=== PATIENT | female | born 1990 | race Two or more races ===

== ENCOUNTER 2018-07-05 23:10 | Emergency (ER) | payer MEDICAID ==
[~2018-07-05] VITALS: Ht 160 cm; Wt 50.9 kg
[2018-07-05 23:32] LABS: CLARITY,URINE CLEAR (Clear); COLOR,URINE STRAW (Yellow); GLUCOSE, URINE NEGATIVE (Neg); KETONES,URINE NEGATIVE (Neg); LEUKOCYTE ESTERASE ,URINE NEGATIVE (Neg); NITRITES, URINE NEGATIVE (Neg); OCCULT BLOOD,URINE NEGATIVE (Neg); PROTEIN,URINE NEGATIVE (Neg); UA COLLECTION TYPE CLN CATCH MIDSTREAM; UROBILINOGEN,URINE 0.2 E.U/dL (0.2-1.0)
[2018-07-05 23:34] LABS: URINE HCG NEGATIVE (NEG)
[2018-07-05 23:36] LABS: BASOPHILS % (AUTO) 0.4 % (0-1); EOSINOPHILS # (AUTO) 0.1 X10'3 (0-0.9); EOSINOPHILS % (AUTO) 1.3 % (0-6); HEMOGLOBIN 14.2 g/dl (12.0-16.0); LYMPHOCYTES # (AUTO) 2.1 X10'3 (1.1-4.8); LYMPHOCYTES % (AUTO) 35.6 % (21-51); MEAN CORPUSCULAR HEMOGLOBIN 28.5 PG (27.0-31.0); MEAN CORPUSCULAR HGB CONC 33.9 % (33.0-36.5); MEAN CORPUSCULAR VOLUME 84.2 FL (78-98); MEAN PLATELET VOLUME 10.2 FL (7.4-10.4); MONOCYTES # (AUTO) 0.5 X10'3 (0-0.9); MONOCYTES % (AUTO) 8.2 % (2-12); NEUTROPHILS # (AUTO) 3.2 X10'3 (1.8-7.7); NEUTROPHILS % (AUTO) 54.5 % (42-75); PLATELET COUNT 249 X10'3 (140-440); RED BLOOD COUNT 4.99 X10'6 (4.20-5.60); RED CELL DISTRIBUTION WIDTH 11.8 % (11.5-14.5); WHITE BLOOD COUNT 5.9 X10'3 (4.5-11.0)
[2018-07-05 23:43] LABS: ALANINE AMINOTRANSFERASE 16 U/L (12-78); ALBUMIN 3.9 G/DL (3.4-5.0); ALKALINE PHOSPHATASE 62 IU/L (46-116); ANION GAP 5 (8-16); ASPARTATE AMINO TRANSFERASE 16 U/L (10-37); BILIRUBIN,TOTAL 0.2 MG/DL (0.1-1.0); BLOOD UREA NITROGEN 12 MG/DL (7-18); CALCIUM 8.8 MG/DL (8.5-10.1); CHLORIDE 106 MMOL/L (99-107); CREATININE 0.75 MG/DL (0.40-0.90); POTASSIUM 3.6 MMOL/L (3.5-5.1); SODIUM 142 MMOL/L (135-145); TOTAL PROTEIN 7.8 G/DL (6.4-8.2); eGFR > 90 ML/MIN
[2018-07-06 00:12] LABS: GLUCOSE 94 MG/DL (70-104)
[2018-07-06 00:55] VITALS: BP 105/69
== END 2018-07-06 01:15 | disposition home or self-care (01) ==
LOC: ER 23:11
DX: R22.9 Localized swelling, mass and lump, unspecified (principal); R10.30 Lower abdominal pain, unspecified; G89.29 Other chronic pain
CPT/HCPCS: 36415; 80053; 81003; 81025; 85025; 99284

== ENCOUNTER 2019-06-21 15:14 | Emergency (ER) | payer MEDICAID ==
[~2019-06-21] VITALS: Ht 160 cm; Wt 55.4 kg
[2019-06-21 15:56] LABS: BASOPHILS % (AUTO) 0.4 % (0-1); EOSINOPHILS # (AUTO) 0.1 X10'3 (0-0.9); EOSINOPHILS % (AUTO) 1.9 % (0-6); HEMATOCRIT 41.3 % (35.0-45.0); HEMOGLOBIN 13.8 g/dl (12.0-16.0); LYMPHOCYTES # (AUTO) 1.4 X10'3 (1.1-4.8); MEAN CORPUSCULAR HEMOGLOBIN 28.7 PG (27.0-31.0); MEAN CORPUSCULAR HGB CONC 33.4 g/dL (33.0-36.5); MEAN CORPUSCULAR VOLUME 85.8 FL (78-98); MEAN PLATELET VOLUME 9.8 FL (7.4-10.4); MONOCYTES # (AUTO) 0.4 X10'3 (0-0.9); MONOCYTES % (AUTO) 8.5 % (2-12); NEUTROPHILS # (AUTO) 3.1 X10'3 (1.8-7.7); NEUTROPHILS % (AUTO) 62.2 % (42-75); PLATELET COUNT 244 X10'3 (140-440); RED BLOOD COUNT 4.81 X10'6 (4.20-5.60); RED CELL DISTRIBUTION WIDTH 12.4 % (11.5-14.5)
[2019-06-21 16:05] LABS: PARTIAL THROMBOPLASTIN TIME 26 SECONDS (22-32)
[2019-06-21 16:11] LABS: ALANINE AMINOTRANSFERASE 40 U/L (12-78); ALBUMIN 3.8 G/DL (3.4-5.0); ALKALINE PHOSPHATASE 68 IU/L (46-116); ANION GAP 8 (8-16); ASPARTATE AMINO TRANSFERASE 28 U/L (10-37); BILIRUBIN,TOTAL 0.2 MG/DL (0.1-1.0); BLOOD UREA NITROGEN 11 MG/DL (7-18); BUN/CREATININE RATIO 16.2 (6.6-38.0); CALCIUM 8.8 MG/DL (8.5-10.1); CHLORIDE 106 MMOL/L (99-107); CREATININE 0.68 MG/DL (0.40-0.90); GLUCOSE 91 MG/DL (70-104); POTASSIUM 3.9 MMOL/L (3.5-5.1); SODIUM 141 MMOL/L (135-145); TOTAL CARBON DIOXIDE 26.8 MMOL/L (24-32); TOTAL PROTEIN 7.8 G/DL (6.4-8.2); eGFR > 90 ML/MIN
[2019-06-21 18:11] VITALS: BP 117/64
== END 2019-06-21 19:00 | disposition home or self-care (01) ==
LOC: ER 15:15
DX: R00.2 Palpitations (principal); G89.29 Other chronic pain
CPT/HCPCS: 36415; 71045; 80053; 84443; 84484; 85025; 85610; 85730; 93005; 99284

== ENCOUNTER 2019-10-23 21:27 | Emergency (ER) | payer MEDICAID ==
[~2019-10-23] VITALS: Ht 160 cm; Wt 54.5 kg
[2019-10-23 21:27] VITALS: BP 112/53
[2019-10-23 21:45] LABS: URINE HCG NEGATIVE (NEG)
[2019-10-23 22:35] LABS: CLARITY,URINE CLEAR (Clear); COLOR,URINE STRAW (Yellow); GLUCOSE, URINE NEGATIVE (Neg); KETONES,URINE NEGATIVE (Neg); LEUKOCYTE ESTERASE ,URINE NEGATIVE (Neg); NITRITES, URINE NEGATIVE (Neg); OCCULT BLOOD,URINE NEGATIVE (Neg); PROTEIN,URINE NEGATIVE (Neg); UROBILINOGEN,URINE 0.2 E.U/dL (0.2-1.0)
[2019-10-23 22:52] LABS: UA COLLECTION TYPE CLN CATCH MIDSTREAM
== END 2019-10-23 23:04 | disposition home or self-care (01) ==
LOC: ER 21:27
DX: R30.0 Dysuria (principal); M54.5 Low back pain; G89.29 Other chronic pain; Z98.890 Other specified postprocedural states
CPT/HCPCS: 81003; 81025; 99283

== ENCOUNTER 2020-01-14 07:37 | Inpatient (IN) | payer MEDICAID ==
[~2020-01-14] VITALS: Ht 160 cm; Wt 54.0 kg
[2020-01-14] VITALS (13 sets, daily range): BP systolic 74–114; BP diastolic 43–76
[2020-01-14 07:55] LABS: URINE HCG NEGATIVE (NEG)
[2020-01-14 07:56] LABS: CLARITY,URINE SLIGHTLY CLOUDY (Clear); COLOR,URINE YELLOW (Yellow); GLUCOSE, URINE NEGATIVE (Neg); KETONES,URINE NEGATIVE (Neg); LEUKOCYTE ESTERASE ,URINE NEGATIVE (Neg); NITRITES, URINE NEGATIVE (Neg); OCCULT BLOOD,URINE LARGE (Neg); PH,URINE 6.5 (4.8-8.0); PROTEIN,URINE NEGATIVE (Neg); UA COLLECTION TYPE CLN CATCH MIDSTREAM; UROBILINOGEN,URINE 0.2 E.U/dL (0.2-1.0)
[2020-01-14 08:08] LABS: MUCUS STRANDS MODERATE /LPF (Neg); SQUAMOUS EPITHELIAL CELL,UR MODERATE /LPF (FEW)
[2020-01-14 08:09] LABS: RBC,URINE 50-100 /HPF (0-2)
[2020-01-14] MEDS ORDERED: normal saline 1000ML IV soln IVB ONE ×2 (08:10→10:50)
[2020-01-14] MEDS ORDERED: ondansetron/PF 4mg/2ml inj IV ONE (08:10)
[2020-01-14] MEDS ORDERED: ketorolac trometh. 30mg/ml inj. IV ONE (08:10)
[2020-01-14 08:11] LABS: BACTERIA,URINE 1+ /HPF (Neg); CAL OXALATE CRYSTALS 1+ /HPF (NEGATIVE)
[2020-01-14 08:41] LABS: BASOPHILS % (AUTO) 0.3 % (0-1); EOSINOPHILS # (AUTO) 0.1 X10'3 (0-0.9); EOSINOPHILS % (AUTO) 1.9 % (0-6); HEMATOCRIT 37.3 % (35.0-45.0); HEMOGLOBIN 12.6 g/dl (12.0-16.0); LYMPHOCYTES # (AUTO) 1.4 X10'3 (1.1-4.8); LYMPHOCYTES % (AUTO) 26.1 % (21-51); MEAN CORPUSCULAR HEMOGLOBIN 28.6 PG (27.0-31.0); MEAN CORPUSCULAR HGB CONC 33.7 g/dL (33.0-36.5); MEAN CORPUSCULAR VOLUME 84.9 FL (78-98); MEAN PLATELET VOLUME 9.8 FL (7.4-10.4); MONOCYTES # (AUTO) 0.6 X10'3 (0-0.9); MONOCYTES % (AUTO) 10.7 % (2-12); NEUTROPHILS # (AUTO) 3.2 X10'3 (1.8-7.7); PLATELET COUNT 210 X10'3 (140-440); RED CELL DISTRIBUTION WIDTH 12.2 % (11.5-14.5); WHITE BLOOD COUNT 5.3 X10'3 (4.5-11.0)
[2020-01-14 08:56] LABS: ALANINE AMINOTRANSFERASE 29 U/L (12-78); ALBUMIN 3.6 G/DL (3.4-5.0); ALKALINE PHOSPHATASE 62 IU/L (46-116); ANION GAP 6 (8-16); ASPARTATE AMINO TRANSFERASE 25 U/L (10-37); BILIRUBIN,TOTAL 0.2 MG/DL (0.1-1.0); BLOOD UREA NITROGEN 12 MG/DL (7-18); BUN/CREATININE RATIO 15.4 (6.6-38.0); CALCIUM 8.4 MG/DL (8.5-10.1); CHLORIDE 105 MMOL/L (99-107); CREATININE 0.78 MG/DL (0.40-0.90); GLUCOSE 99 MG/DL (70-104); LIPASE 198 U/L (73-393); POTASSIUM 3.6 MMOL/L (3.5-5.1); SODIUM 139 MMOL/L (135-145); TOTAL CARBON DIOXIDE 28.2 MMOL/L (24-32); TOTAL PROTEIN 7.2 G/DL (6.4-8.2); eGFR 86 ML/MIN
[2020-01-14] MEDS: morphine 4 MG/ML inj SYRINge IV PRN ×2 (09:30→10:58)
[2020-01-14] MEDS ORDERED: FLO0.4C PO (10:19)
[2020-01-14] MEDS ORDERED: IBUP-1984 PO (10:19)
[2020-01-14] MEDS ORDERED: HYDR-3965 PO (10:19)
[2020-01-14] MEDS ORDERED: morphine 4 MG/ML inj SYRINge IV ONE (11:15)
[2020-01-14] MEDS ORDERED: HYDROmorphone 1 mg/ml syringe IV ONE (11:15)
[2020-01-14] MEDS ORDERED: morphine 2 MG/ML inj. syringe IV PRN ×3 (11:30→14:30)
[2020-01-14] MEDS ORDERED: HYDROcodone/acetaminophen 5mg/325mg tablet PO PRN (11:30)
[2020-01-14] MEDS ORDERED: potassium Cl 20 mEq SR tablet PO PRN ×2 (11:30)
[2020-01-14] MEDS ORDERED: ondansetron/PF 4mg/2ml inj IV PRN ×2 (11:30→14:30)
[2020-01-14] MEDS ORDERED: magnesium hydroxide 30ml (MOM) UD suspension PO PRN (11:30)
[2020-01-14] MEDS ORDERED: magnesium 4gm in 100ml NS 100 ML IV PRN (11:30)
[2020-01-14] MEDS ORDERED: magnesium 2GM in 50ml NS 50 ML IV PRN (11:30)
[2020-01-14] MEDS ORDERED: magnesium Cl slow-release 64mg tablet PO PRN (11:30)
[2020-01-14] MEDS ORDERED: potassium CL 10mEq/100ml bag 100 ML IV PRN ×2 (11:30)
[2020-01-14] MEDS ORDERED: acetaminophen 325mg tablet PO PRN ×2 (11:30)
[2020-01-14] MEDS ORDERED: HYDROcodone/acetaminophen 10/325mg tab PO PRN (11:30)
[2020-01-14] MEDS ORDERED: mag hydrox/Alum hydrox/simeth 30ml oral suspension PO PRN (11:30)
[2020-01-14] MEDS ORDERED: NO HOME MEDS (11:41)
--- NOTE | 2020-01-14 12:30 | NUR ---
Patient in room [facility]. I have received report from GINA Henson and had the opportunity to ask questions and assume patient care.
[2020-01-14] MEDS: normal saline 1000ml 1,000 ML IV SCH ×2 (12:55→20:50)
--- NOTE | 2020-01-14 13:51 | NUR ---
Urologist Dr. Encinas provided treatment options.
[2020-01-14] MEDS ORDERED: CefTRIAXone 1000mg IM Kit (w/lidocaine diluent) IM STA (14:00)
[2020-01-14] MEDS ORDERED: ringers solution, lacted 1,000 ML IV SCH (14:29)
[2020-01-14] MEDS ORDERED: labetalol 20mg/4ml (5mg/ml) syringe IV PRN (14:30)
[2020-01-14] MEDS ORDERED: morphine 4 MG/ML inj SYRINge IV PRN (14:30)
[2020-01-14] MEDS ORDERED: hydrALAZINE 20mg/ml inj. IV PRN (14:30)
[2020-01-14] MEDS ORDERED: fentaNYL/PF 50MCG/1 ML 2ML syringe IV PRN ×2 (14:30)
[2020-01-14] MEDS ORDERED: iohexol 300 MG/1 ML 50ml polymer ONE (14:45)
--- NOTE | 2020-01-14 14:50 | NUR ---
Pt was picked up by OR tech at 1450. No distress noted.
[2020-01-14] MEDS ORDERED: midazolam 2 mg/2 ml injection ONE (14:51)
[2020-01-14] MEDS ORDERED: ondansetron/PF 4mg/2ml inj ONE (14:51)
[2020-01-14] MEDS ORDERED: fentaNYL/PF 50MCG/1 ML 2ML syringe ONE (14:51)
[2020-01-14] MEDS ORDERED: propofol inj 20 ML IV ONE (14:51)
[2020-01-14] MEDS ORDERED: LIDOcaine 2% (20mg/ml) 5ml vial ONE (14:51)
[2020-01-14] MEDS ORDERED: sevoflurane 250ml liquid IH ONE (14:55)
[2020-01-14] MEDS ORDERED: dexamethasone sod phosphate 4mg/ml inj. ONE (15:08)
--- NOTE | 2020-01-14 15:32 | NUR ---
Received from OR via BED, accompanied by Anesthesiologist DR CARBALLO and report given by Anesthesiologist. PT VERY DROWSY, NO S/S OF DISTRESS/DISCOMFORT, BP MARGINAL, DR CARBALLO AWARE. Addendum: 01/14/20 at 1557 by Trang Arreola RN Amended: Links added.
--- NOTE | 2020-01-14 16:07 | NUR ---
Received report from GINA Costello from OR, BP 89/52, 800 LR was given, no pain at present. L ureteral stent placed through cystoscopy.
--- NOTE | 2020-01-14 16:32 | NUR ---
Report called to receiving nurse. Transferred via BED, NO Belongings, PT COMFORTABLE, RECEIVING RN AT BEDSIDE TO RECEIVE PT, BLL, CALL LIGHT GIVEN, SIDE RAILS UP X 2. Special Issues communicated to receiving nurse. YES. Addendum: 01/14/20 at 1641 by Trang Arreola RN Amended: Links added.
--- NOTE | 2020-01-14 18:00 | NUR ---
Problems reprioritized. Patient report given, questions answered & plan of care reviewed with GINA Villavicencio.
--- NOTE | 2020-01-14 18:15 | NUR ---
Patient in room [facility]. I have received report from lizzie FUENTES and had the opportunity to ask questions and assume patient care.
--- NOTE | 2020-01-14 19:36 | NUR ---
Patient has 1x juice and 2 x broth for dinner = 480mls Addendum: 01/15/20 at 0237 by Maye Cowan RN Amended: Links added.
[2020-01-14] MEDS: K and/or MAG REPLACEMENT MC SCH (20:00)
[2020-01-14] MEDS ORDERED: tamsulosin 0.4mg capsule PO SCH (21:00)
[2020-01-14] MEDS ORDERED: temazepam 15mg capsule PO PRN (21:00)
[2020-01-14] MEDS: heparin, porcine 5000 units/ml vial SQ SCH (21:07)
[2020-01-15 04:00] VITALS: BP 90/52
[2020-01-15 05:23] LABS: BASOPHILS % (AUTO) 0.1 % (0-1); EOSINOPHILS % (AUTO) 0 % (0-6); HEMATOCRIT 33.4 % (35.0-45.0); HEMOGLOBIN 11.2 g/dl (12.0-16.0); LYMPHOCYTES # (AUTO) 0.6 X10'3 (1.1-4.8); LYMPHOCYTES % (AUTO) 8.3 % (21-51); MEAN CORPUSCULAR HEMOGLOBIN 28.8 PG (27.0-31.0); MEAN CORPUSCULAR HGB CONC 33.7 g/dL (33.0-36.5); MEAN CORPUSCULAR VOLUME 85.4 FL (78-98); MEAN PLATELET VOLUME 10.1 FL (7.4-10.4); MONOCYTES # (AUTO) 0.5 X10'3 (0-0.9); NEUTROPHILS % (AUTO) 84.6 % (42-75); PLATELET COUNT 198 X10'3 (140-440); RED BLOOD COUNT 3.91 X10'6 (4.20-5.60); RED CELL DISTRIBUTION WIDTH 12.1 % (11.5-14.5); WHITE BLOOD COUNT 7.1 X10'3 (4.5-11.0)
[2020-01-15 05:43] LABS: ALBUMIN 2.8 G/DL (3.4-5.0); ANION GAP 10 (8-16); BLOOD UREA NITROGEN 8 MG/DL (7-18); BUN/CREATININE RATIO 10.1 (6.6-38.0); CALCIUM 8.1 MG/DL (8.5-10.1); CHLORIDE 107 MMOL/L (99-107); CREATININE 0.79 MG/DL (0.40-0.90); GLUCOSE 125 MG/DL (70-104); POTASSIUM 3.5 MMOL/L (3.5-5.1); SODIUM 140 MMOL/L (135-145); TOTAL CARBON DIOXIDE 23.3 MMOL/L (24-32); eGFR 85 ML/MIN
--- NOTE | 2020-01-15 06:41 | NUR ---
Problems reprioritized. Patient report given, questions answered & plan of care reviewed with Dalia FUENTES. Patient currently sleeping.
[2020-01-15 07:00] VITALS: BP 90/50
[2020-01-15] MEDS: normal saline 1000ml 1,000 ML IV SCH (07:44)
[2020-01-15] MEDS: K and/or MAG REPLACEMENT MC SCH (07:46)
[2020-01-15] MEDS: heparin, porcine 5000 units/ml vial SQ SCH (07:47)
[2020-01-15] MEDS ORDERED: CefTRIAXone 2gm/D5W 50ml 50 ML IV SCH (08:00)
[2020-01-15] MEDS ORDERED: lactobacillus rhamnosus 10,000 MMU CELLS/CAPSULE PO SCH (20:00)
== END 2020-01-15 11:53 | disposition home or self-care (01) | DRG 463 ==
LOC: ER 07:37 → ED HOLD 11:30 → SUR 3N 12:50
PROVIDERS: ADMIT Internal Medicine; ATTEND Family Medicine
PROC: 0T778DZ Dilation of Left Ureter with Intraluminal Device, Via Natural or Artificial Opening Endoscopic (ICD-10-PCS; principal; 2020-01-14 14:55)
DX: N13.6 Pyonephrosis (principal); G89.29 Other chronic pain; N80.9 Endometriosis, unspecified; Z98.891 History of uterine scar from previous surgery
CPT/HCPCS: 36415; 74018; 74176; 76000; 80048; 80053; 81001; 81025; 82948; 83605; 83690; 83735; 85025; 87040; 87081; 87088; 96361; 96374; 96375; 96376; 99285; A4618; C1758; C1769; C2617; G0378; J0696; J1100; J1644; J1885; J2001; J2250; J2270; J2405; J2704; J3010; J7030; Q9967

== ENCOUNTER 2020-08-13 00:18 | Emergency (ER) | payer MEDICAID ==
[~2020-08-13] VITALS: Ht 160 cm; Wt 55.0 kg
[~2020-08-13 00:18] MED LIST: NO HOME MEDS
[2020-08-13 01:41] LABS: URINE HCG NEGATIVE (NEG)
[2020-08-13 01:42] LABS: CLARITY,URINE CLEAR (Clear); COLOR,URINE STRAW (Yellow); GLUCOSE, URINE NEGATIVE (Neg); KETONES,URINE NEGATIVE (Neg); LEUKOCYTE ESTERASE ,URINE NEGATIVE (Neg); NITRITES, URINE NEGATIVE (Neg); OCCULT BLOOD,URINE TRACE-INTACT (Neg); PH,URINE 7.5 (4.8-8.0); PROTEIN,URINE NEGATIVE (Neg); UROBILINOGEN,URINE 0.2 E.U/dL (0.2-1.0)
[2020-08-13 01:43] LABS: BASOPHILS % (AUTO) 0.4 % (0-1); EOSINOPHILS # (AUTO) 0.1 X10'3 (0-0.9); EOSINOPHILS % (AUTO) 2.1 % (0-6); HEMATOCRIT 39.4 % (35.0-45.0); HEMOGLOBIN 13.1 g/dl (12.0-16.0); LYMPHOCYTES # (AUTO) 1.7 X10'3 (1.1-4.8); LYMPHOCYTES % (AUTO) 40.7 % (21-51); MEAN CORPUSCULAR HEMOGLOBIN 27.9 PG (27.0-31.0); MEAN CORPUSCULAR HGB CONC 33.1 g/dL (33.0-36.5); MEAN PLATELET VOLUME 9.9 FL (7.4-10.4); MONOCYTES # (AUTO) 0.4 X10'3 (0-0.9); MONOCYTES % (AUTO) 9.1 % (2-12); NEUTROPHILS % (AUTO) 47.7 % (42-75); PLATELET COUNT 235 X10'3 (140-440); RED BLOOD COUNT 4.69 X10'6 (4.20-5.60); RED CELL DISTRIBUTION WIDTH 12.1 % (11.5-14.5); WHITE BLOOD COUNT 4.3 X10'3 (4.5-11.0)
[2020-08-13 01:43] LABS: UA COLLECTION TYPE CLN CATCH MIDSTREAM
[2020-08-13 01:49] LABS: ALANINE AMINOTRANSFERASE 22 U/L (12-78); ALBUMIN 3.7 G/DL (3.4-5.0); ALKALINE PHOSPHATASE 73 IU/L (46-116); ANION GAP 7 (8-16); ASPARTATE AMINO TRANSFERASE 18 U/L (10-37); BILIRUBIN,TOTAL 0.2 MG/DL (0.1-1.0); BLOOD UREA NITROGEN 11 MG/DL (7-18); BUN/CREATININE RATIO 13.8 (6.6-38.0); CALCIUM 8.5 MG/DL (8.5-10.1); CHLORIDE 106 MMOL/L (99-107); GLUCOSE 118 MG/DL (70-104); LIPASE 176 U/L (73-393); POTASSIUM 3.7 MMOL/L (3.5-5.1); SODIUM 141 MMOL/L (135-145); TOTAL CARBON DIOXIDE 28.5 MMOL/L (24-32); TOTAL PROTEIN 7.5 G/DL (6.4-8.2); eGFR 84 ML/MIN
[2020-08-13 01:50] LABS: BACTERIA,URINE NONE SEEN /HPF (Neg); RBC,URINE 0-2 /HPF (0-2); SQUAMOUS EPITHELIAL CELL,UR FEW /LPF (FEW); WBC,URINE NONE SEEN /HPF (0-4)
[2020-08-13 01:52] LABS: URINE AMPHETAMINE SCREEN NEGATIVE (Neg); URINE BARBITUATE SCREEN NEGATIVE (Neg); URINE BENZODIAZEPINES SCREEN NEGATIVE (Neg); URINE CANNABINOID SCREEN NEGATIVE (Neg); URINE COCAINE SCREEN NEGATIVE (Neg); URINE METHADONE SCREEN NEGATIVE (Neg); URINE OPIATE SCREEN NEGATIVE (Neg); URINE PHENCYCLIDINE SCREEN NEGATIVE (Neg)
[2020-08-13 02:34] VITALS: BP 125/86
== END 2020-08-13 03:02 | disposition home or self-care (01) ==
LOC: ER 00:19
DX: R10.9 Unspecified abdominal pain (principal); Z87.442 Personal history of urinary calculi; G89.29 Other chronic pain; Z98.890 Other specified postprocedural states
CPT/HCPCS: 36415; 80053; 80305; 81001; 81025; 83690; 85025; 99283

== ENCOUNTER 2021-02-19 20:15 | Emergency (ER) | payer MEDICAID ==
[~2021-02-19] VITALS: Ht 160 cm; Wt 54.5 kg
[2021-02-19 21:19] LABS: URINE HCG NEGATIVE (NEG)
[2021-02-19 21:22] LABS: CLARITY,URINE SLIGHTLY CLOUDY (Clear); COLOR,URINE STRAW (Yellow); GLUCOSE, URINE NEGATIVE (Neg); KETONES,URINE NEGATIVE (Neg); LEUKOCYTE ESTERASE ,URINE LARGE (Neg); NITRITES, URINE NEGATIVE (Neg); OCCULT BLOOD,URINE LARGE (Neg); PROTEIN,URINE 30 mg/dl (Neg); UROBILINOGEN,URINE 0.2 E.U/dL (0.2-1.0)
[2021-02-19 21:39] LABS: UA COLLECTION TYPE CLN CATCH MIDSTREAM
[2021-02-19 21:40] LABS: WBC,URINE 30-50 /HPF (0-4)
[2021-02-19 21:41] LABS: BACTERIA,URINE FEW /HPF (Neg); SQUAMOUS EPITHELIAL CELL,UR FEW /LPF (FEW); WBC CLUMPS,URINE FEW /HPF (NEGATIVE)
[2021-02-19] MEDS ORDERED: CEPH250T PO (22:23)
[2021-02-19] MEDS ORDERED: cephalexin 250mg capsule PO ONE ×2 (22:35→22:40)
== END 2021-02-19 22:46 | disposition home or self-care (01) ==
LOC: ER 20:16
DX: N39.0 Urinary tract infection, site not specified (principal); R30.0 Dysuria; G89.29 Other chronic pain; Z87.442 Personal history of urinary calculi; Z87.440 Personal history of urinary (tract) infections; Z98.890 Other specified postprocedural states
CPT/HCPCS: 81001; 81025; 87088; 99283

== ENCOUNTER 2021-12-12 23:18 | Emergency (ER) | payer MEDICAID ==
[~2021-12-12] VITALS: Ht 152.4 cm; Wt 63.6 kg
[2021-12-12 23:34] VITALS: BP 143/81
[2021-12-13 00:09] LABS: MEAN CORPUSCULAR HGB CONC 33.6 g/dL (33.0-36.5); WHITE BLOOD COUNT 5.7 X10'3 (4.5-11.0)
[2021-12-13 00:11] LABS: URINE HCG NEGATIVE (NEG)
[2021-12-13 00:11] LABS: BASOPHILS % (AUTO) 0.4 % (0-1); EOSINOPHILS # (AUTO) 0.1 X10'3 (0-0.9); EOSINOPHILS % (AUTO) 1.8 % (0-6); HEMATOCRIT 39.9 % (35.0-45.0); HEMOGLOBIN 13.4 g/dl (12.0-16.0); LYMPHOCYTES % (AUTO) 35.4 % (21-51); MEAN CORPUSCULAR HEMOGLOBIN 27.8 PG (27.0-31.0); MEAN CORPUSCULAR VOLUME 82.8 FL (78-98); MEAN PLATELET VOLUME 9.9 FL (7.4-10.4); MONOCYTES # (AUTO) 0.4 X10'3 (0-0.9); MONOCYTES % (AUTO) 7.5 % (2-12); NEUTROPHILS # (AUTO) 3.1 X10'3 (1.8-7.7); NEUTROPHILS % (AUTO) 54.9 % (42-75); PLATELET COUNT 261 X10'3 (140-440); RED BLOOD COUNT 4.82 X10'6 (4.20-5.60); RED CELL DISTRIBUTION WIDTH 12.4 % (11.5-14.5)
[2021-12-13 00:14] LABS: ALANINE AMINOTRANSFERASE 16 U/L (12-78); ALBUMIN 3.9 G/DL (3.4-5.0); ALBUMIN/GLOBULIN RATIO 1.1 (1.1-1.5); ALKALINE PHOSPHATASE 70 IU/L (46-116); ANION GAP 14 (8-16); ASPARTATE AMINO TRANSFERASE 14 U/L (10-37); BILIRUBIN,TOTAL 0.3 MG/DL (0.1-1.0); BLOOD UREA NITROGEN 16 MG/DL (7-18); BUN/CREATININE RATIO 20.5 (6.6-38.0); CALCIUM 8.9 MG/DL (8.5-10.1); CHLORIDE 105 MMOL/L (99-107); CREATININE 0.78 MG/DL (0.40-0.90); ETHANOL < 0.010 GM/DL (0.0-0.010); GLUCOSE 159 MG/DL (70-104); MAGNESIUM 2.1 MG/DL (1.5-2.4); POTASSIUM 3.7 MMOL/L (3.5-5.1); SODIUM 142 MMOL/L (135-145); TOTAL CARBON DIOXIDE 23.2 MMOL/L (24-32); TOTAL PROTEIN 7.6 G/DL (6.4-8.2); eGFR 85 ML/MIN
[2021-12-13 00:15] LABS: URINE BARBITUATE SCREEN NEGATIVE (Neg); URINE BENZODIAZEPINES SCREEN NEGATIVE (Neg); URINE CANNABINOID SCREEN NEGATIVE (Neg); URINE COCAINE SCREEN NEGATIVE (Neg); URINE METHADONE SCREEN NEGATIVE (Neg); URINE OPIATE SCREEN NEGATIVE (Neg); URINE PHENCYCLIDINE SCREEN NEGATIVE (Neg)
[2021-12-13 00:26] LABS: URINE AMPHETAMINE SCREEN NEGATIVE (Neg)
[2021-12-13 00:42] LABS: CLARITY,URINE CLEAR (Clear); COLOR,URINE YELLOW (Yellow); GLUCOSE, URINE NEGATIVE (Neg); KETONES,URINE NEGATIVE (Neg); LEUKOCYTE ESTERASE ,URINE NEGATIVE (Neg); NITRITES, URINE NEGATIVE (Neg); OCCULT BLOOD,URINE NEGATIVE (Neg); PROTEIN,URINE NEGATIVE (Neg); UROBILINOGEN,URINE 0.2 E.U/dL (0.2-1.0)
[2021-12-13 00:48] LABS: UA COLLECTION TYPE CLN CATCH MIDSTREAM
[2021-12-13] MEDS ORDERED: normal saline 1000ML IV soln IVB ONE (00:50)
[2021-12-13] MEDS ORDERED: iohexol 350MG/ML 100ml bottle IV ONE (00:55)
[2021-12-13] MEDS ORDERED: metoprolol tartrate 1mg/ml inj IV ONE (01:25)
[2021-12-13] MEDS ORDERED: metoprolol tartrate 50mg tablet PO ONE (01:25)
[2021-12-13 01:55] LABS: C-REACTIVE PROTEIN < 0.05 MG/DL (0.0-0.5)
== END 2021-12-13 03:36 | disposition home or self-care (01) ==
LOC: ER 23:20
DX: R00.0 Tachycardia, unspecified (principal); Z20.822 Contact with and (suspected) exposure to COVID-19; R07.89 Other chest pain; R06.02 Shortness of breath; R06.4 Hyperventilation; R68.83 Chills (without fever); R00.2 Palpitations; G89.29 Other chronic pain; Z87.440 Personal history of urinary (tract) infections; Z87.441 Personal history of nephrotic syndrome; Z98.891 History of uterine scar from previous surgery
CPT/HCPCS: 36415; 71275; 80053; 80305; 80320; 81003; 81025; 83735; 84145; 85025; 86140; 87635; 93005; 96360; 99285; C9803; J7030; Q9967

== ENCOUNTER 2022-02-27 17:44 | Emergency (ER) | payer MEDICAID ==
[~2022-02-27] VITALS: Ht 160 cm; Wt 56.8 kg
[2022-02-27 17:54] VITALS: BP 106/65
== END 2022-02-27 18:16 | disposition home or self-care (01) ==
LOC: ER 17:45
DX: H92.01 Otalgia, right ear (principal); G89.29 Other chronic pain; Z87.442 Personal history of urinary calculi; Z79.899 Other long term (current) drug therapy
CPT/HCPCS: 99281

== ENCOUNTER 2024-03-16 06:14 | Emergency (ER) | payer MEDICAID ==
[~2024-03-16] VITALS: Ht 160 cm; Wt 57.9 kg
[2024-03-16 07:45] LABS: BASOPHILS % (AUTO) 0.3 % (0-1); EOSINOPHILS # (AUTO) 0.1 X10'3 (0-0.9); EOSINOPHILS % (AUTO) 1.4 % (0-6); HEMATOCRIT 37.9 % (35.0-45.0); HEMOGLOBIN 12.5 g/dl (12.0-16.0); LYMPHOCYTES # (AUTO) 1.2 X10'3 (1.1-4.8); MEAN CORPUSCULAR HEMOGLOBIN 27.7 PG (27.0-31.0); MEAN CORPUSCULAR HGB CONC 33.1 g/dL (33.0-36.5); MEAN CORPUSCULAR VOLUME 83.7 FL (78-98); MEAN PLATELET VOLUME 9.9 FL (7.4-10.4); MONOCYTES # (AUTO) 0.5 X10'3 (0-0.9); MONOCYTES % (AUTO) 9.6 % (2-12); NEUTROPHILS # (AUTO) 3.2 X10'3 (1.8-7.7); NEUTROPHILS % (AUTO) 63.7 % (42-75); PLATELET COUNT 219 X10'3 (140-440); RED BLOOD COUNT 4.53 X10'6 (4.20-5.60); RED CELL DISTRIBUTION WIDTH 12.5 % (11.5-14.5)
[2024-03-16 08:05] LABS: ALBUMIN 3.4 G/DL (3.4-5.0); ANION GAP 10 (8-16); BLOOD UREA NITROGEN 15 MG/DL (7-18); BUN/CREATININE RATIO 20.8 (10.0-20.0); CALCIUM 8.4 MG/DL (8.5-10.1); CHLORIDE 107 MMOL/L (99-107); CREATININE 0.72 MG/DL (0.40-0.90); GLUCOSE 99 MG/DL (70-104); POTASSIUM 3.6 MMOL/L (3.5-5.1); PRO BRAIN NATRIURETIC PEPTIDE 46 PG/ML (0-125); SODIUM 140 MMOL/L (135-145); TOTAL CARBON DIOXIDE 22.6 MMOL/L (24-32); eCRCL 90 ML/MIN; eGFR > 90 ML/MIN
[2024-03-16 09:21] VITALS: BP 100/61; PULSE 79; RESP 16; TEMP 98.1; O2SAT 98
== END 2024-03-16 09:10 | disposition home or self-care (01) ==
LOC: ER 06:15
DX: R00.0 Tachycardia, unspecified (principal); R00.2 Palpitations; R06.02 Shortness of breath; Z98.890 Other specified postprocedural states
CPT/HCPCS: 36415; 71045; 80048; 83880; 84484; 85025; 93005; 99285